=== PATIENT | female | born 1930 | race Caucasian/White ===

== ENCOUNTER → 2016-11-29 | Outpatient (CLI) | payer OTHER, MEDICARE ==
--- NOTE | 2016-11-29 13:05 | DX ---
Right Hip, Two Views. History: Right hip pain. Comparison: February 2013. Findings: Postsurgical changes are seen of a left hip hemiarthroplasty. Mild degenerative change is s een in the right hip with mild joint narrowing superiorly and subarticular sclerosis and periarticula r spurring. There is lateral acetabular over coverage with prominent lateral spurring of the superior acetabulum. No evidence for periarticular erosion. No evidence for acute fracture or dislocation. De generative change is seen in the lower lumbar spine. Mild degenerative change is seen in the symphysi s pubis. Impression: Mild degenerative change right hip. No evidence for acute fracture. Other chronic finding s as above.
== END ==
LOC: FIMAGING 11:32 → EDSTATUS 16:28
PROVIDERS: ATTEND Family Medicine
DX: M25.551 Pain in right hip (principal)

== ENCOUNTER → 2017-07-18 | Outpatient (CLI) | payer OTHER, MEDICARE | LOC: BMCIMAGING 10:17 | PROVIDERS: ATTEND Family Medicine | DX: Z13.820 Encounter for screening for osteoporosis (principal); M81.0 Age-related osteoporosis without current pathological fracture ==